=== PATIENT | male | born 1970 | race Caucasian/White ===

== ENCOUNTER 2016-08-25 19:16 | Emergency (ER) | payer MEDICAID ==
[~2016-08-25] VITALS: Ht 177.8 cm; Wt 88.0 kg
[2016-08-25 19:17] VITALS: BP 155/89; PULSE 90; RESP 16; TEMP 97.9; O2SAT 96
--- NOTE | 2016-08-25 19:44 | RADRPT ---
EXAM DATE/TIME: 08/25/2016 19:36 [place] COMPARISON: No previous studies available for comparison. INDICATIONS : Chest pain, cough, congestion, and shortness of breath. MEDICAL HISTORY : Hypertension. SURGICAL HISTORY : None. ENCOUNTER: Initial ACUITY: 1 month PAIN SCORE: 6/10 LOCATION: Bilateral chest FINDINGS: A single view of the chest demonstrates the lungs to be symmetrically aerated without evidence of mas s, infiltrate or effusion. The cardiomediastinal contours are unremarkable. Osseous structures are intact. CONCLUSION: No acute disease. Manuel Swan MD on August 25, 2016 at 19:42 Board Certified Radiologist. This report was verified electronically.
--- NOTE | 2016-08-25 21:09 | PD ---
HPI Chief Complaint: Respiratory Symptoms Time Seen by Provider: 21:03 Travel History International Travel<30 days: No Contact w/Intl Traveler<30days: No Traveled to known affect area: No History of Present Illness HPI 46-year-old male presents to the emergency department for evaluation of shortness of breath, wheezing, cough, congestion for one month. Patient states that this time last year he had the same symptoms and was diagnosed with bronchitis. He states that his has asthma and he has been using her albuterol inhaler nebulizer with relief. However, he ran out yesterday, which causes symptoms to worsen. Patient denies any fevers. He does report being a former smoker, quit 1 year ago. Patient reports chest pain with coughing as well. He states this started after the cold symptoms started. Patient reports no chronic medical problems and takes no prescribed medications. Patient denies any abdominal pain. No nausea, vomiting, diarrhea. 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 Prednisone 20 Mg Tab 40 Mg PO DAILY 4 Days Albuterol Neb (Albuterol Sulfate) 2.5 Mg/3 Ml Neb 2.5 Mg NEB Q4HR NEB PRN While awake Ventolin Hfa 18 GM Inh (Albuterol Sulfate) 90 Mcg/Act Aer 1 Puff INH Q4H PRN Review of Systems Except as stated in HPI: all other systems reviewed are Neg Physical Exam Narrative GENERAL: Well-nourished, well-developed male patient, ambulatory. Afebrile. SKIN: Focused skin assessment warm/dry. HEAD: Normocephalic. Atraumatic. EYES: No scleral icterus. No injection or drainage. NECK: Supple, trachea midline. No JVD or lymphadenopathy. CARDIOVASCULAR: Regular rate and rhythm without murmurs, gallops, or rubs. RESPIRATORY: Breath sounds equal bilaterally. No accessory muscle use. Lungs sounds that are wheezes noted throughout. Dry cough noted. GASTROINTESTINAL: Abdomen soft, non-tender, nondistended. MUSCULOSKELETAL: No cyanosis, or edema. BACK: Nontender without obvious deformity. No CVA tenderness. Data Data Last Documented VS Vital Signs Date Time Temp Pulse Resp B/P Pulse Ox O2 Delivery O2 Flow Rate FiO2 08/25/16 22:30 80 16 155/78 97 Room Air 08/25/16 19:17 97.9 Orders Electrocardiogram (08/25/16 19:27) Chest, Single Ap (08/25/16 19:27) Complete Blood Count With Diff (08/25/16 21:02) Basic Metabolic Panel (Bmp) (08/25/16 21:02) B-Type Natriuretic Peptide (08/25/16 21:02) Magnesium (Mg) (08/25/16 21:02) Ckmb (Isoenzyme) Profile (08/25/16 21:02) Troponin I (08/25/16 21:02) Iv Access Insert/Monitor (08/25/16 21:02) Ecg Monitoring (08/25/16 21:02) Oximetry (08/25/16 21:02) Oxygen Administration (08/25/16 21:02) Sodium Chloride 0.9% Flush (Ns Flush) (08/25/16 21:15) Methylprednisolone So Succ Inj (Solumedr (08/25/16 21:15) Albuterol-Ipratropium Neb (Duoneb Neb) (08/25/16 21:15) CKMB (08/25/16 21:39) CKMB% (08/25/16 21:39) Labs Laboratory Tests Test 08/25/16 21:39 White Blood Count 10.3 TH/MM3 Red Blood Count 5.53 MIL/MM3 Hemoglobin 15.5 GM/DL Hematocrit 45.3 % Mean Corpuscular Volume 81.9 FL Mean Corpuscular Hemoglobin 28.1 PG Mean Corpuscular Hemoglobin 34.3 % Concent Red Cell Distribution Width 13.7 % Platelet Count 287 TH/MM3 Mean Platelet Volume 7.6 FL Neutrophils (%) (Auto) 55.9 % Lymphocytes (%) (Auto) 27.0 % Monocytes (%) (Auto) 8.5 % Eosinophils (%) (Auto) 7.6 % Basophils (%) (Auto) 1.0 % Neutrophils # (Auto) 5.8 TH/MM3 Lymphocytes # (Auto) 2.8 TH/MM3 Monocytes # (Auto) 0.9 TH/MM3 Eosinophils # (Auto) 0.8 TH/MM3 Basophils # (Auto) 0.1 TH/MM3 CBC Comment DIFF FINAL Differential Comment Sodium Level 137 MEQ/L Potassium Level 4.3 MEQ/L Chloride Level 105 MEQ/L Carbon Dioxide Level 25.0 MEQ/L Anion Gap 7 MEQ/L Blood Urea Nitrogen 15 MG/DL Creatinine 1.06 MG/DL Estimat Glomerular Filtration 75 ML/MIN Rate Random Glucose 96 MG/DL Calcium Level 8.7 MG/DL Magnesium Level 2.1 MG/DL Total Creatine Kinase 125 U/L Creatine Kinase MB 3.9 NG/ML Troponin I LESS THAN 0.02 NG/ML B-Type Natriuretic Peptide LESS THAN 2 PG/ML MDM Medical Decision Making Medical Screen Exam Complete: Yes Emergency Medical Condition: Yes Medical Record Reviewed: Yes Differential Diagnosis Last Impressions Chest X-Ray 08/25/161926 Signed Impressions: Service Date/Time: Thursday, August 25, 2016 19:36 - CONCLUSION: No acute disease. Manuel Swan MD Narrative Course 46-year-old male presents to the emergency department for evaluation of shortness of breath, wheezing, cough, congestion over one month. He states he had this previously and was diagnosed with bronchitis. Patient states the symptoms are similar. EKG done in triage shows sinus tachycardia, heart rate 109, no acute ST changes. CBC, BMP, BNP, CK, troponin, magnesium are ordered and pending. Chest x-ray done in triage shows no acute abnormality. CBC shows no acute abnormality. BMP shows no acute abnormality. BNP [-]. CK is 125. Troponin is less than 0.02. Magnesium is 2.1. Upon reexamination, patient states he feels much better. He is laughing and joking with family members. He states he would like to go home. Patient will be discharged with a prescription for azithromycin, prednisone, albuterol. He has a nebulizer machine at home that his uses. I'll also discharge him with albuterol for his nebulizer machine. Patient verbalizes agreement and understanding. The patient was discharged in stable condition with instructions, including return instructions and follow up instructions. Diagnosis Primary Impression: Acute bronchitis Qualified Code: J20.9 - Acute bronchitis, unspecified organism Referrals: Primary Care Physician 3 days Patient Instructions: Acute Bronchitis (ED), General Instructions Additional Instructions: Use albuterol inhaler/nebulizer as directed as needed for shortness of breath/ wheezing. Take prednisone as directed. Start this tomorrow. Take azithromycin as directed until gone. Follow-up with your primary care physician. Return to the emergency department for any acute worsening of symptoms. Med/Other Pt SpecificInfo: Prescription(s) given Scripts Azithromycin (Zithromax Z-Emmanuel)250 Mg [id number] Mg PO DIRECTED #1 DSPK Ref 0 500 MG (2 tabs) day 1, then 1 tab days 2-5. Prov:Crystal Shaffer 08/25/16 Prednisone 20 Mg Tab40 Mg PO DAILY 4 Days Ref 0 Prov:Crystal Shaffer 08/25/16 Albuterol Neb 2.5 Mg/3 Ml Neb2.5 Mg NEB Q4HR NEB PRN (SOB/WHEEZING) #60 NEBULE Ref 0 While awake Prov:Crystal Shaffer 08/25/16 Albuterol 18 GM Inh (Ventolin Hfa 18 GM Inh)90 Mcg/Act Aer1 Puff INH Q4H PRN ( SHORTNESS OF BREATH) #1 INHALER Ref 0 Prov:Crystal Shaffer 08/25/16 Disposition: 01 DISCHARGE HOME Condition: Stable Crystal Shaffer Aug 25, 2016 21:08
[2016-08-25] MEDS ORDERED: methylPREDNISolone SOD SUCC 125 MG/2 ML VIAL IVP ONE (21:15)
[2016-08-25] MEDS ORDERED: SODIUM CHLORIDE 0.9% FLUSH 10 ML FLUSH IVF PRN (21:15)
[2016-08-25] MEDS: RESP: ALBUTEROL 2.5 MG/IPRATROPIUM 0.5 MG NEB (SCH) INH ×2 (21:17→21:18)
[2016-08-25 22:01] LABS: AUTOMATED NEUTROPHIL # 5.8 TH/MM3 (1.8-7.7); BASOPHIL # 0.1 TH/MM3 (0-0.2); EOSINOPHIL # 0.8 TH/MM3 (0-0.4); EOSINOPHIL % 7.6 % (0.0-4.0); HEMATOCRIT 45.3 % (39.0-51.0); HEMO FLAGS DIFF FINAL; LYMPHOCYTE # 2.8 TH/MM3 (1.0-4.8); MEAN CELL VOLUME 81.9 FL (80.0-100.0); MEAN CORPUSCULAR HEMOGLOBIN 28.1 PG (27.0-34.0); MEAN CORPUSCULAR HGB CONC 34.3 % (32.0-36.0); MONO % 8.5 % (0.0-8.0); NEUT % 55.9 % (16.0-70.0); PLATELET COUNT 287 TH/MM3 (150-450); RED BLOOD COUNT 5.53 MIL/MM3 (4.50-5.90); RED CELL DISTRIBUTION WIDTH 13.7 % (11.6-17.2); WHITE BLOOD COUNT 10.3 TH/MM3 (4.0-11.0)
[2016-08-25 22:30] VITALS: BP 155/78; PULSE 80; RESP 16; O2SAT 97
[2016-08-25 22:39] LABS: BLOOD UREA NITROGEN 15 MG/DL (7-18); CHLORIDE 105 MEQ/L (98-107); CREATINE KINASE 125 U/L (39-308); GLOMERULAR FILTRATION RATE 75 ML/MIN (>89); MAGNESIUM 2.1 MG/DL (1.5-2.5); SODIUM (NA) 137 MEQ/L (136-145)
[2016-08-25 22:40] LABS: POTASSIUM 4.3 MEQ/L (3.5-5.1)
[2016-08-25 22:50] LABS: ANION GAP 7 MEQ/L (5-15)
[2016-08-25] MEDS ORDERED: VENTAER INH (22:50)
[2016-08-25] MEDS ORDERED: ZITHTAB PO (22:50)
[2016-08-25] MEDS ORDERED: ALBU0.08 NEB (22:50)
[2016-08-25] MEDS ORDERED: PRED20 PO (22:50)
[2016-08-25 22:53] LABS: CKMB 3.9 NG/ML (0.5-3.6)
--- NOTE | 2016-08-27 21:26 | EKG ---
Date Performed: 08/25/2016 Time Performed: 19:32:01 PTAGE: 46 years EKG: SINUS TACHYCARDIA POSSIBLE RIGHT ATRIAL ENLARGEMENT POSSIBLE LEFT ATRIAL ENLARGEMENT ABNORM AL RHYTHM ECG NO PREVIOUS TRACING DOCTOR: Isa Woodson Interpretating Date/Time 08/27/2016 21:22:57
== END 2016-08-26 00:13 | disposition home or self-care (01) ==
LOC: NEPC 19:16
DX: J20.9 Acute bronchitis, unspecified (principal); R00.0 Tachycardia, unspecified; Z87.891 Personal history of nicotine dependence
CPT/HCPCS: 71010; 80048; 82550; 82552; 83735; 83880; 84484; 85025; 93005; 94640; 94664; 96374; 99283; J2930